=== PATIENT | male | born 1960 | race African-American/Black ===

== ENCOUNTER 2019-03-31 01:27 | Emergency (ER) | payer OTHER ==
[~2019-03-31] VITALS: Ht 188 cm; Wt 80.0 kg
[2019-03-31] MEDS ORDERED: BACITRACIN ZINC OINT UDPKT TOP ONE (03:30)
[2019-03-31] MEDS ORDERED: ACETAMINOPHEN 325MG TABLET PO ONE (03:30)
[2019-03-31] MEDS ORDERED: TETANUS, DIPHTHERIA, PERTUSSIS VAC/PF 0.5ML (>7YR OLD) IM ONE (03:30)
[2019-03-31 07:44] VITALS: BP 124/72
== END 2019-03-31 07:40 | disposition home or self-care (01) ==
LOC: ER 01:27
DX: S09.8XXA Other specified injuries of head, initial encounter (principal); S02.2XXA Fracture of nasal bones, initial encounter for closed fracture; S05.11XA Contusion of eyeball and orbital tissues, right eye, initial encounter; H11.31 Conjunctival hemorrhage, right eye; Y04.0XXA Assault by unarmed brawl or fight, initial encounter; Y93.89 Activity, other specified; Y92.29 Other specified public building as the place of occurrence of the external cause; Z23 Encounter for immunization; R03.0 Elevated blood-pressure reading, without diagnosis of hypertension
CPT/HCPCS: 70486; 90471; 90715; 99284